=== PATIENT | female | born 1980 | race African-American/Black ===

== ENCOUNTER 2016-12-25 23:14 | Emergency (ER) | payer OTHER ==
[~2016-12-25] VITALS: Ht 165.1 cm; Wt 93.0 kg
[~2016-12-25 23:14] MED LIST: IBUPROFEN800 MG PO; NAPROSYN500 M1 PO; PERCOCET 325 MG1 TA2 PO; PRENATAL1 TA1 PO; ROBITUSSIN W/CO10 ML PO; ZITHROMAX250 M2 PO
[2016-12-25 23:44] VITALS: BP 123/77
[2016-12-26] MEDS ORDERED: AMOXICILLIN875 M1 PO (00:19)
[2016-12-26] MEDS ORDERED: PROAIR HFA8.5 GM INH (00:19)
[2016-12-26] MEDS ORDERED: IBUPROFEN600 M1 PO (00:19)
[2016-12-26] MEDS ORDERED: PREDNISONE20 M1 PO (00:19)
[2016-12-26] MEDS ORDERED: AFRIN30 ML NASB (00:19)
--- NOTE | 2016-12-26 00:20 | ED INFLUENZA/URI COMPLAINT ---
History of Present Illness General Chief Complaint: Upper Respiratory Sx/Fever Stated Complaint: STUFFY NOSE, CHEST PAIN Source: patient, family, old records Exam Limitations: no limitations Vital Signs & Intake/Output Vital Signs & Intake/Output Vital Signs Date Time Temp Pulse Resp B/P Pulse O2 O2 Flow FiO2 Ox Delivery Rate 12/25 2344 98.7 79 16 123/77 100 Room Air ED Intake and Output 12/26 0000 12/25 1200 Intake Total Output Total Balance Patient 205 lb Weight Allergies Coded Allergies: NO KNOWN ALLERGIES (01/25/15) Reconcile Medications Albuterol Sulfate (Proair Hfa) 90 MCG HFA.AER.AD 2-4 PUF INH Q4-6 PRN PRN shortness of breath, cough Amoxicillin 875 MG TABLET 1 TAB PO BID sinusitis Azithromycin (Zithromax) 250 MG TABLET 1 DP PO AD SINUSITIS 2 the first day followed by 1 for days 2-5 Ibuprofen 600 MG TABLET 1 TAB PO Q6PRN PRN pain with food Ibuprofen 800 MG TABLET 800 MG PO Q6P PRN PAIN SCALE 4-6 Naproxen (Naprosyn) 500 MG TABLET 1 TAB PO BID PRN FEVER OR DISCOMFORT OXYCODONE HCL/ACETAMINOPHEN (Percocet 5-325 MG Tablet) 325 MG/5 MG TAB 1 TAB PO Q4P PRN PAIN SCALE 7-8 Oxymetazoline HCl (Afrin) 0.05 % SPRAY 2 SPRAY NASB BID sinusitis Prednisone 20 MG TABLET 1 TAB PO BID sinusitis [id number] () 1 TAB TAB 1 TAB PO 1 TIMES/DAY ( Reported) Triage Note: 36yo FEMALE TO TRIAGE W/CO NASAL CONGESTION, NATION, COUGH X 2 D. STATES NO RELIEF AFTER TYLENOL AT 1800 TONITE Triage Nurses Notes Reviewed? yes Onset: 2 weeks Duration: week(s):, constant, continues in ED, getting worse Timing: recent history Severity: moderate Prior Episodes/Possible Cause: illness exposure No Modifying Factors: none Associated Symptoms: cough, fever/chills, lightheadedness, muscle aches, nasal congestion, nasal drainage, sinus infection LMP (ages 10-50): unknown : No Patient currently breastfeeds: No HPI: 2 weeks prior to admission patient complains of nasal congestion sore throat nonproductive cough with worsening sinus headache. She denies fever chills chest pain shortness of breath dysuria rash bleeding . Past History Travel History Traveled to [place] past 21 day No Medical History Any Pertinent Medical History? 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 No Review of Systems Review of Systems Constitutional: Reports: see HPI, malaise. EENTM: Reports: see HPI, nasal congestion, nasal pain, throat pain. Respiratory: Reports: see HPI, cough. Cardiovascular: Reports: no symptoms. GI: Reports: no symptoms. Genitourinary: Reports: no symptoms. Musculoskeletal: Reports: no symptoms. Skin: Reports: no symptoms. Neurological/Psychological: Reports: no symptoms. Hematologic/Endocrine: Reports: no symptoms. Immunologic/Allergic: Reports: no symptoms. All Other Systems: Reviewed and Negative Physical Exam Physical Exam General Appearance: well developed/nourished, alert, awake, anxious, mild distress, obese Head: atraumatic, normal appearance Eyes: Bilateral: normal appearance, PERRL, EOMI. Ears, Nose, Throat: moist mucous membrane, nasal congestion, nasal drainage, pharyngeal erythema Neck: normal inspection, supple, full range of motion, trachea midline, lymphadenopathy (R), lymphadenopathy (L) Respiratory: normal breath sounds, chest non-tender, no respiratory distress, quiet respiration, lungs clear Cardiovascular: regular rate/rhythm, normal peripheral pulses, norml femoral pulses equa Peripheral Pulses: 4+ carotid (R), 4+ carotid (L) Gastrointestinal: normal bowel sounds, soft, non-tender, no organomegaly Back: normal inspection, normal range of motion Extremities: normal inspection, normal capillary refill, normal range of motion, no edema Neurologic/Psych: no motor/sensory deficits, awake, alert, oriented x 3, normal gait, normal mood/affect Reflexes: 2+: bicep (R), bicep (L). Skin: intact, normal color, warm/dry Lymphatic: adenopathy Core Measures Severe Sepsis Present: No Septic Shock Present: No Progress Differential Diagnosis: influenza, pharyngitis, sinusitis Plan of Care: steroid antibiotic afrin Initial ED EKG: none Departure Departure Time of Disposition: 16 Disposition: HOME OR SELF CARE Condition: Stable Clinical Impression Primary Impression: Sinusitis, acute Qualifiers: Sinusitis location: unspecified location Recurrence: not specified as recurrent Qualified Code: J01.90 - Acute sinusitis, unspecified Secondary Impressions: Bronchitis Referrals: AGUEDA CABRAL MD (PCP/Family) Departure Forms: Customer Survey General Discharge Information RELEASE- WORK Prescriptions: Current Visit Scripts Amoxicillin 1 TAB PO BID #20 TAB Prednisone 1 TAB PO BID #10 TAB Oxymetazoline HCl (Afrin) 2 SPRAY NASB BID #30 ML Albuterol Sulfate (Proair Hfa) 2-4 PUF INH Q4-6 PRN PRN shortness of breath, cough #1 INHAL Ibuprofen 1 TAB PO Q6PRN PRN pain #50 TAB with food
== END 2016-12-26 00:32 ==
LOC: ERH 23:14
DX: J01.90 Acute sinusitis, unspecified (principal); J40 Bronchitis, not specified as acute or chronic

== ENCOUNTER 2017-04-19 00:56 | Emergency (ER) | payer OTHER ==
[~2017-04-19] VITALS: Ht 165.1 cm; Wt 90.3 kg
[~2017-04-19 00:56] MED LIST changes: +AFRIN30 ML NASB; +AMOXICILLIN875 M1 PO; +IBUPROFEN600 M1 PO; +PREDNISONE20 M1 PO; +PROAIR HFA8.5 GM INH
[2017-04-19 00:59] VITALS: BP 114/75
== END 2017-04-19 03:59 | disposition admitted as inpatient to this hospital (09) ==
LOC: ERH 00:56
DX: J02.9 Acute pharyngitis, unspecified (principal)
CPT/HCPCS: 99281

== ENCOUNTER 2017-04-21 23:21 | Emergency (ER) | payer OTHER ==
[2017-04-21 23:59] VITALS: BP 120/77
--- NOTE | 2017-04-22 00:16 | ED THROAT/DENTAL COMPLAINT ---
History of Present Illness General Chief Complaint: Sore Throat, Dental Pain Stated Complaint: SORE THROAT X'S 1 WK Source: patient, old records Exam Limitations: no limitations Vital Signs & Intake/Output Vital Signs & Intake/Output Vital Signs Date Time Temp Pulse Resp B/P B/P Pulse O2 O2 Flow FiO2 Mean Ox Delivery Rate 04/21 2359 97.9 75 20 120/77 97 Allergies Coded Allergies: NO KNOWN ALLERGIES (NKA 04/19/17) Reconcile Medications Methylprednisolone. (Medrol) 4 MG TAB.DS.PK 1 DP PO AD pharyngitis 6 on day 1 then reduce by one tablet daily until gone Triage Note: PER PT SORE THROAT SINCE THURSDAY CAME TO ED BUT WE WERE TOO BUSY, SAW PMD PLACED ON PEN VK PER PT MAKES IT WORSE Triage Nurses Notes Reviewed? yes Onset: Gradual Duration: day(s): (4), constant Timing: recent history Injury Environment: home Severity: mild, moderate Severity Numbers: 6 No Modifying Factors: none Associated Symptoms: denies : No Patient currently breastfeeds: No HPI: 37-year-old female presents to the ER complaining of a four-day history of persistent sore throat. She saw her primary care physician yesterday who prescribed her penicillin VK she took her first day's dose however states her symptoms persist. No recent dental work no rhinorrhea congestion and fever chills however pain is worse with swallowing. No change in her voice. No sick contacts no modifying factors or associated symptoms otherwise. (ASHLEY CATHERINE) Past History Travel History Traveled to [place] past 21 day No Medical History Any Pertinent Medical History? 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 No (ASHLEY CATHERINE) Review of Systems Review of Systems Constitutional: Reports: see HPI. All Other Systems: Reviewed and Negative Comments Review of systems: See HPI, All other systems negative. Constitutional, no chills no fever, no malaise HEENT: No visual changes sore throat no congestion Cardiovascular: No chest pain , no palpitation Skin: no rashes, no change in skin Respiratory: No dyspnea no cough no sputum GI: No nausea no vomiting, no diarrhea, : No dysuria Muscle skeletal: No joint pain, no joint swelling, no back pain Neurologic: no headache Psych: No stress Heme/endocrine: No bruising no bleeding Immunology: No lymphadenopathy (ASHLEY CATHERINE) Physical Exam Physical Exam General Appearance: well developed/nourished, no apparent distress, alert Mouth/Throat: normal mouth inspection Comments: Well-developed well-nourished patient in no apparent distress. Head/Face: Atraumatic, no maxillary/frontal sinus tenderness, no facial swelling Eyes: PERRL, EOMI, no conjunctival injection Ear:External auditory canal and Tympanic membranes clear, no erythema, no FB. Nose: atraumatic.Normal inspection Throat: Moist mucous membranes.Pharynx normal. No pharyngeal erythema/exudate seen. No stridor/drooling or assymetry. No swelling or edema. Neck: Supple, no lymphadenopathy, FROM Back: FROM Cardiovascular: Regular rate and rhythms no murmurs rubs Respiratory: No respiratory distress. Patient speaking in full complete sentences. Breath sounds clear to auscultation bilaterally: NO W/R/R Extremities: full range of motion Neuro: awake, alert, and oriented to person, place and time. There were no obvious focal neurologic abnormalities. Skin: Warm & dry;No appreciable rash on exposed skin Psych: Mood affect normal, normal memory normal judgment. Core Measures ACS in differential dx? No Severe Sepsis Present: No Septic Shock Present: No (ASHLEY CATHERINE) Progress Differential Diagnosis: epiglottitis, Ludwigs angina, meningitis, odontogenic abscess, marifer-tonsillar abscess, strep pharyngitis Plan of Care: Orders Procedure Date/time Status THROAT CULTURE W/QUICK STREP 04/21 1988 Active I discussed with the patient at length all of their results. I had an extensive conversation regarding need for close follow up with their primary care physician this week as well as return precautions. I answered all of their questions, they feel comfortable with the plan and follow-up care. I discussed with the patient/family the medications that they will receive. I gave them signs and symptoms that could indicate an adverse reaction. I have advised them to limit their activities until they can see how they respond to the medication. (ASHLEY CATHERINE) Departure Departure Time of Disposition: 20 Disposition: HOME OR SELF CARE Condition: Stable Clinical Impression Primary Impression: Pharyngitis Referrals: MISHA GARRISON,AGUEDA (PCP/Family) Additional Instructions: Continue taking the antibiotic as prescribed. Medrol Dosepak as discussed, salt water gargles Tylenol Motrin for pain. follow up with your primary care physician this week, return with any concerns. this was sent to [facility] Departure Forms: Customer Survey General Discharge Information Prescriptions: Current Visit Scripts Methylprednisolone. (Medrol) 1 DP PO AD #1 DP 6 on day 1 then reduce by one tablet daily until gone (ASHLEY CATHERINE) PA/COMPUTER BOOKKEEPER Co-Sign Statement Statement: ED Attending supervision documentation- [] I saw and evaluated the patient. I have also reviewed all the pertinent lab results and diagnostic results. I agree with the findings and the plan of care as documented in the PA's/COMPUTER BOOKKEEPER's documentation. [X] I have reviewed the ED Record and agree with the PA's/COMPUTER BOOKKEEPER's documentation. [] Additions or exceptions (if any) to the PAs/COMPUTER BOOKKEEPER's note and plan are summarized below: [] (ANTOINE GARRISON,VINCENT Fernandez)
[2017-04-22] MEDS ORDERED: MEDROL4 M2 PO (00:22)
== END 2017-04-22 01:00 ==
LOC: ERH 23:21
DX: J02.9 Acute pharyngitis, unspecified (principal)